=== PATIENT | female | born 1970 | race Caucasian/White ===

== ENCOUNTER 2016-12-13 16:41 | Emergency (ER) | payer OTHER ==
[2016-12-13 18:00] LABS: Basophils % (Auto) 0.3 % (0.0-1.8); Eosinophils % (Auto) 0.2 % (0.0-4.3); Hemoglobin 10.4 gm/dl (10.1-14.3); Mean Corpuscular HGB Conc 32 % (30-34); Mean Corpuscular Volume 78 fl (79-97); Platelet Count 399 K/mm3 (140-440); Red Blood Count 4.13 M/mm3 (3.65-5.03); Red Cell Distribution Width 16.1 % (13.2-15.2); White Blood Count 16.9 K/mm3 (4.5-11.0)
[2016-12-13 18:12] LABS: Anion Gap 20 mmol/L; BUN/Creatinine Ratio 18.33; Blood Urea Nitrogen 11 mg/dL (7-17); Calcium 8.6 mg/dL (8.4-10.2); Carbon Dioxide 26 mmol/L (22-30); Chloride 93.9 mmol/L (98-107); Glucose 151 mg/dL (65-100); Potassium 3.8 mmol/L (3.6-5.0); Sodium 136 mmol/L (137-145)
[2016-12-13 18:32] LABS: Mean Corpuscular Hemoglobin 25 pg (28-32)
[2016-12-13 20:48] VITALS: BP 119/62
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
[2016-12-13] MEDS ORDERED: NORCO 10/325 PO ONE (21:28)
[2016-12-13 22:08] LABS: Albumin 4.2 g/dL (3.9-5); Albumin/Globulin Ratio 1.3 %; Bilirubin,Direct 0.2 mg/dL (0-0.2); Bilirubin,Indirect 0.3 mg/dL; Bilirubin,Total 0.5 mg/dL (0.1-1.2); Total Protein 7.5 g/dL (6.3-8.2)
--- NOTE | 2016-12-13 22:27 | XRay Report ---
FINAL REPORT PROCEDURE: Chest. TECHNIQUE: Frontal and lateral views. HISTORY: Chest pain. COMPARISON: No prior studies are available for comparison. FINDINGS: The heart size is normal. There is mild tortuosity of the thoracic aorta. The lungs are clear and well expanded. There are no pleural effusions. The soft tissues and regional skeleton are unremarkable. IMPRESSION: No evidence of acute disease.
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
== END 2016-12-13 23:33 | disposition home or self-care (01) ==
LOC: ED 16:41
DX: M25.50 Pain in unspecified joint (principal); M79.1 Myalgia; V49.49XA Driver injured in collision with other motor vehicles in traffic accident, initial encounter; X58.XXXA Exposure to other specified factors, initial encounter; Y93.9 Activity, unspecified; Y92.9 Unspecified place or not applicable; Y99.9 Unspecified external cause status
CPT/HCPCS: 36415; 71020; 72070; 74020; 80048; 80074; 82150; 83690; 84484; 85025; 93005; 93010